=== PATIENT | male | born 1950 | race Caucasian/White ===

== ENCOUNTER 2024-01-04 07:03 | Emergency (ER) | payer MEDICARE ==
[2024-01-04 08:16] LABS: BASOPHILS ABSOLUTE AUTO 0.04 K/uL (0.02-0.10); BASOPHILS PERCENT AUTO 0.5 % (0.0-0.5); EOSINOPHILS PERCENT AUTO 4.7 % (1.0-5.0); HEMATOCRIT 40.4 % (40.0-54.0); HEMOGLOBIN 13.8 g/dL (13.0-18.0); LYMPHOCYTES ABSOLUTE AUTO 1.21 K/uL (1.50-4.00); LYMPHOCYTES PERCENT AUTO 14.1 % (20.0-40.0); MEAN CORPUSCULAR HEMOGLOBIN 27.8 pg (27.0-32.0); MEAN CORPUSCULAR HGB CONC 34.2 g/dL (31.0-35.0); MEAN CORPUSCULAR VOLUME 81 fL (76-96); MEAN PLATELET VOLUME 10.2 fL (6.0-10.0); MONOCYTES ABSOLUTE AUTO 0.73 K/uL (0.20-0.80); MONOCYTES PERCENT AUTO 8.5 % (3.0-10.0); NEUTROPHILS ABSOLUTE AUTO 6.18 K/uL (2.00-7.50); NEUTROPHILS PERCENT AUTO 72.2 % (45.0-70.0); PLATELET COUNT,PLT 204 K/uL (150-400); RED BLOOD CELL COUNT 4.97 M/uL (4.50-6.50); RED CELL DISTRIBUTION WIDTH 14.1 % (11.0-16.0); WHITE BLOOD CELL COUNT,WBC 8.6 K/uL (4.0-11.0)
[2024-01-04 08:17] LABS: APPEARANCE,URINE CLEAR (CLEAR); BILIRUBIN,URINE NEGATIVE (NEGATIVE); COLOR,URINE YELLOW; GLUCOSE,URINE NEGATIVE (NEGATIVE); KETONES,URINE NEGATIVE (NEGATIVE); LEUKOCYTE ESTERASE,URINE NEGATIVE (NEGATIVE); NITRITE,URINE NEGATIVE (NEGATIVE); OCCULT BLOOD,URINE NEGATIVE (NEGATIVE); PROTEIN,URINE NEGATIVE (NEGATIVE); UROBILINOGEN,URINE 0.2 E.U./dL (0.2-1.0)
[2024-01-04 08:22] LABS: RBC,URINE NOT SEEN /HPF; SQUAMOUS EPITHELIAL CELLS,UR RARE /HPF; WBC,URINE NOT SEEN /HPF
[2024-01-04 08:33] LABS: C-REACTIVE PROTEIN 13.1 mg/L (<5.0)
[2024-01-04 08:37] LABS: A/G RATIO 1.1 (0.8-2.0); ALBUMIN 3.7 g/dL (3.4-5.0); ANION GAP 14.9 mmol/L (5.0-15.0); BILIRUBIN TOTAL 0.5 mg/dL (0.0-1.0); BUN/CREATININE RATIO 22.2 (6-25); CALCIUM 9.2 mg/dL (8.5-10.1); CARBON DIOXIDE,CO2 26.4 mmol/L (21.0-32.0); CREATININE 0.9 mg/dL (0.70-1.30); EST CRCL DRUG DOSING (CG) 75.53 mL/min; POTASSIUM,K 4.3 mmol/L (3.5-5.1); PROTEIN TOTAL,TP 7.1 g/dL (6.4-8.2)
[2024-01-04 09:41] VITALS: BP 145/71; PULSE 72
== END 2024-01-04 09:33 | disposition home or self-care (01) ==
LOC: LB.ED 07:03
DX: K59.00 Constipation, unspecified (principal); Z79.899 Other long term (current) drug therapy
CPT/HCPCS: 36415; 74176; 80053; 81001; 83605; 83690; 85025; 86140; 99284

== ENCOUNTER 2024-04-04 05:00 | Emergency (ER) | payer MEDICARE ==
[2024-04-04 06:39] LABS: BASOPHILS ABSOLUTE AUTO 0.02 K/uL (0.02-0.10); BASOPHILS PERCENT AUTO 0.1 % (0.0-0.5); EOSINOPHILS ABSOLUTE AUTO 0.03 K/uL (0.04-0.40); EOSINOPHILS PERCENT AUTO 0.2 % (1.0-5.0); HEMATOCRIT 39.6 % (40.0-54.0); LYMPHOCYTES ABSOLUTE AUTO 1.12 K/uL (1.50-4.00); MEAN CORPUSCULAR HGB CONC 32.8 g/dL (31.0-35.0); MEAN CORPUSCULAR VOLUME 79 fL (76-96); MEAN PLATELET VOLUME 10.1 fL (6.0-10.0); MONOCYTES PERCENT AUTO 10.7 % (3.0-10.0); NEUTROPHILS ABSOLUTE AUTO 13.07 K/uL (2.00-7.50); PLATELET COUNT,PLT 215 K/uL (150-400); RED CELL DISTRIBUTION WIDTH 15.8 % (11.0-16.0); WHITE BLOOD CELL COUNT,WBC 15.9 K/uL (4.0-11.0)
[2024-04-04 06:55] LABS: A/G RATIO 0.9 (0.8-2.0); ALBUMIN 3.7 g/dL (3.4-5.0); ANION GAP 16.5 mmol/L (5.0-15.0); BILIRUBIN TOTAL 1.3 mg/dL (0.0-1.0); BUN/CREATININE RATIO 11.5 (6-25); CALCIUM 8.7 mg/dL (8.5-10.1); CARBON DIOXIDE,CO2 25.7 mmol/L (21.0-32.0); CREATININE 0.87 mg/dL (0.70-1.30); EST CRCL DRUG DOSING (CG) 78.14 mL/min; POTASSIUM,K 4.2 mmol/L (3.5-5.1); PROTEIN TOTAL,TP 7.6 g/dL (6.4-8.2)
[2024-04-04] MEDS: Bisacodyl 10 MG Supp RECTAL ONE (07:16)
[2024-04-04] MEDS: Sodium Chloride 0.9% 1,000 ML IV SCH (07:26)
[2024-04-04] MEDS: Iopamidol 612 MG/ML 100 ML Bottle IV SCH (08:08)
[2024-04-04] MEDS: Sodium Chloride 0.9% 50 ML SDV FLUSH ONE (08:08)
[2024-04-04 08:58] LABS: APPEARANCE,URINE SLIGHTLY CLOUDY (CLEAR); BILIRUBIN,URINE SMALL (NEGATIVE); COLOR,URINE YELLOW; GLUCOSE,URINE NEGATIVE (NEGATIVE); KETONES,URINE 15 mg/dL (NEGATIVE); LEUKOCYTE ESTERASE,URINE NEGATIVE (NEGATIVE); NITRITE,URINE NEGATIVE (NEGATIVE); OCCULT BLOOD,URINE NEGATIVE (NEGATIVE); PROTEIN,URINE 30 mg/dL (NEGATIVE); UROBILINOGEN,URINE 0.2 E.U./dL (0.2-1.0)
[2024-04-04 09:04] LABS: MUCUS,URINE MODERATE /HPF; RBC,URINE 0-5 /HPF; SQUAMOUS EPITHELIAL CELLS,UR OCCASIONAL /HPF; WBC,URINE 0-5 /HPF
[2024-04-04 09:05] LABS: AMORPHOUS SEDIMENT,URINE FEW /HPF
[2024-04-04] MEDS ORDERED: Sodium Chloride 0.9% 10 ML Syringe FLUSH PRN (09:14)
[2024-04-04 10:43] VITALS: BP 117/64; PULSE 73
== END 2024-04-04 09:32 | disposition home or self-care (01) ==
LOC: LB.ED 05:00
DX: R10.9 Unspecified abdominal pain (principal); K21.9 Gastro-esophageal reflux disease without esophagitis; Z79.899 Other long term (current) drug therapy; Z87.891 Personal history of nicotine dependence
CPT/HCPCS: 36415; 74177; 80053; 81001; 83690; 85025; 96360; 96361; 99284; A9270; J3490; J7030; Q9967

== ENCOUNTER 2024-04-05 10:26 | Emergency (ER) | payer MEDICARE ==
[2024-04-05 11:05] VITALS: BP 134/71; PULSE 81
== END 2024-04-05 11:17 | disposition home or self-care (01) ==
LOC: LB.ED 10:26
DX: R04.2 Hemoptysis (principal); R10.9 Unspecified abdominal pain; K21.9 Gastro-esophageal reflux disease without esophagitis; Z79.899 Other long term (current) drug therapy
CPT/HCPCS: 71045; 99284

== ENCOUNTER 2024-04-06 18:18 | Emergency (ER) | payer MEDICARE ==
[2024-04-06] MEDS: Iopamidol 612 MG/ML 100 ML Bottle IV SCH (19:01)
[2024-04-06] MEDS: Sodium Chloride 0.9% 50 ML SDV FLUSH ONE (19:01)
[2024-04-06] MEDS: Heparin Sodium 5,000 Units/ML Vial IVPUSH ONE (19:57)
[2024-04-06] MEDS: Heparin Sodium/D5W 25,000 UNITS/500 ML BAG IV SCH (20:02)
[2024-04-06] MEDS: Heparin Sodium 1,000 Units/ML 10 ML MDV ONE (20:17)
[2024-04-06] MEDS: Heparin Sodium/D5W 500 ML ONE (20:17)
[2024-04-06 20:36] LABS: INR 1.2 (1.0-3.5)
[2024-04-06 20:51] LABS: PROTHROMBIN TIME 12.2 sec (9.0-11.5)
[2024-04-06 20:55] LABS: PTT,PARTIAL THROMBOPLSTIN TIME > 192.4 SECONDS (24.4-33.2)
[2024-04-06 22:22] VITALS: BP 143/82; PULSE 75
== END 2024-04-06 22:06 ==
LOC: LB.ED 18:18
DX: I26.99 Other pulmonary embolism without acute cor pulmonale (principal); K21.9 Gastro-esophageal reflux disease without esophagitis; R10.0 Acute abdomen; R06.02 Shortness of breath; K92.0 Hematemesis; Z79.899 Other long term (current) drug therapy; Z87.891 Personal history of nicotine dependence
CPT/HCPCS: 36415; 71250; 71260; 80053; 81001; 83605; 83690; 84484; 85025; 85379; 85610; 85651; 85730; 86141; 96365; 96366; 99284-25; 99285; A0425; A0428; J1644; J3490; Q9967